=== PATIENT | male | born 1950 | race African-American/Black ===

== ENCOUNTER 2025-01-31 11:41 | Emergency (ER) | payer OTHER, MEDICAID ==
[~2025-01-31] VITALS: Ht 182.9 cm; Wt 136.0 kg
[2025-01-31 11:45] VITALS: O2SAT 96
[2025-01-31 12:33] LABS: BASOPHILS % 0.5 % (0.0-2.0); EOSINOPHILS % 2.6 % (0.0-5.0); HEMATOCRIT. 42.7 % (42.0-52.0); HEMOGLOBIN. 14.3 g/dL (14.0-18.0); LYMPHOCYTES % 24.5 % (20.0-50.0); MEAN CORPUSCULAR HEMOGLOBIN 28.6 pg (28.0-32.0); MEAN CORPUSCULAR HGB CONC 33.6 g/dL (31.0-37.0); MEAN CORPUSCULAR VOLUME 85.2 fL (80.0-94.0); MEAN PLATELET VOLUME 8.9 fl (7.4-10.4); MONOCYTES % 3.6 % (2.0-8.0); NEUTROPHILS % 68.8 % (40.0-76.0); PLATELET 174 x1000/uL (130-400); RED BLOOD CELL COUNT 5.01 mill/uL (4.7-6.1); RED CELL DISTRIBUTION WIDTH 15.2 % (11.6-14.6); WHITE BLOOD COUNT 5.3 x1000/uL (4.5-11.0)
[2025-01-31 12:45] LABS: CHLORIDE 101 mEq/L (98-107); POTASSIUM 3.7 mEq/L (3.5-5.1); SODIUM 137 mEq/L (136-145)
[2025-01-31 12:46] LABS: CARBON DIOXIDE 28 mEq/L (21-32)
[2025-01-31 12:47] LABS: CALCIUM 9.1 mg/dL (8.7-10.4)
[2025-01-31 12:51] LABS: CREATININE 0.8 mg/dL (0.6-1.3); GLUCOSE 169 mg/dL (70-105)
[2025-01-31 12:52] LABS: UREA NITROGEN BLOOD 10 mg/dL (9-23)
[2025-01-31] MEDS: TETRACAINE 0.5% OPHTH DROPS 4ML LEFTEYE ONE (13:29)
[2025-01-31] MEDS ORDERED: ACETAMINOPHEN 325MG TABLET PO ONE (14:00)
[2025-01-31] MEDS ORDERED: ONDANSETRON HCL 4MG TABLET PO ONE (14:00)
[2025-01-31 14:25] VITALS: BP 139/57; PULSE 62; RESP 14; TEMP 36.7; O2SAT 97
== END 2025-01-31 14:36 | disposition hospice, inpatient (51) ==
LOC: ER 11:41
DX: H31.302 Unspecified choroidal hemorrhage, left eye (principal); I48.91 Unspecified atrial fibrillation; I10 Essential (primary) hypertension
CPT/HCPCS: 99284; 70450; 80048; 85025; 36415; 70486; Q0162